=== PATIENT | female | born 1960 | race Caucasian/White ===

== ENCOUNTER 2020-09-26 07:04 | Emergency (ER) | payer MEDICARE, MEDICAID ==
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
[2020-09-26 08:04] LABS: CHLORIDE,CL 105 mmol/L (98-107); SODIUM,NA 142 mmol/L (136-145)
[2020-09-26 08:07] LABS: ANION GAP 15.2 mmol/L (5-15)
[2020-09-26] MEDS ORDERED: methylPREDNISolone Sodium Succinate 125 MG/2 ML SDV IVPUSH ONE (08:21)
[2020-09-26] MEDS ORDERED: Furosemide 40 MG/4 ML VIAL IV ONE (08:21)
[2020-09-26] MEDS ORDERED: Azithromycin 250 MG Tab PO ONE (08:22)
[2020-09-26] MEDS ORDERED: Levofloxacin 500 MG Tab PO ONE (08:28)
--- NOTE | 2020-09-27 14:24 | CR ---
[id number] RAD/RAD Chest PA or AP 1V EXAM: FRONTAL CHEST INDICATION: CHEST PAIN COMPARISON: None. DISCUSSION: Partially imaged right shoulder arthroplasty. The lung volumes. No acute infiltrates. Normal heart size. No effusions. IMPRESSION: 1. Low lung volumes. Luis Mae MD 09/27/20 1105 Thank you for allowing us to participate in the care of your patient.
== END 2020-09-26 10:00 | disposition home or self-care (01) ==
LOC: VM.ED 07:04
DX: J45.901 Unspecified asthma with (acute) exacerbation (principal); I11.0 Hypertensive heart disease with heart failure; I50.9 Heart failure, unspecified; I48.91 Unspecified atrial fibrillation; E78.00 Pure hypercholesterolemia, unspecified; J44.9 Chronic obstructive pulmonary disease, unspecified; Z20.822 Contact with and (suspected) exposure to COVID-19
CPT/HCPCS: 36415; 71045; 80053; 83880; 84484; 85025; 85610; 93005; 93010; 96374; 96375; 99284; 99285-25; A9270-GY; J1940; J2930; U0002

== ENCOUNTER 2020-10-31 12:53 | Emergency (ER) | payer MEDICARE, MEDICAID ==
[2020-10-31] MEDS ORDERED: Sodium Chloride 0.9% 10 ML Syringe FLUSH PRN (13:14)
--- NOTE | 2020-10-31 13:19 | EDM.PDOC ---
ED HPI GENERAL MEDICAL PROBLEM - General Chief Complaint: Chest Pain Stated Complaint: CHEST PAIN Time Seen by Provider: 10/31/20 13:00 Source of Information: Reports: Patient History Limitations: Reports: No Limitations - History of Present Illness INITIAL COMMENTS - FREE TEXT/NARRATIVE: Patient comes into the emergency department complaints of chest pain. Patient has a longstanding history of chest pain and she was recently hospitalized for a similar incident. She states the sudden onset of chest discomfort on the left side hurts more when she takes a deep breath and when she palpates the area. She states it does not cause her dizziness, shortness of breath, lightheadedness, or decrease in responsiveness. She states it does radiate to the back area. She is able to reproduce the discomfort as stated above. Patient is currently on Eliquis for A. fib. She has had extensive cardiac work- up that has been cleared. Patient denies any other concerns or complaints. Onset: Sudden Quality: Reports: Other Severity: Moderate Improves with: Reports: None Worsens with: Reports: None Context: Reports: Other Associated Symptoms: Reports: Chest Pain - Related Data Allergies Allergy/AdvReac Type Severity Reaction Status Date / Time erythromycin base Allergy Severe Shortness Verified 09/26/20 19:21 of Breath KRISTEN Inhibitors Allergy Unknown Cannot Verified 09/26/20 19:21 Remember bee venom protein (honey bee) Allergy Anaphylactic Verified 09/26/20 19:21 Shock cefixime Allergy Cannot Verified 09/26/20 19:21 Remember Iodinated Contrast Media Allergy Anaphylactic Verified 09/26/20 19:21 Shock lidocaine Allergy Shortness Verified 09/26/20 19:21 of Breath nitrofurantoin Allergy Shortness Verified 09/26/20 19:21 of Breath Penicillins Allergy Shortness Verified 09/26/20 19:21 of Breath shellfish derived Allergy Anaphylactic Verified 09/26/20 19:21 Shock Tetracyclines Allergy Cannot Verified 09/26/20 19:21 Remember tramadol Allergy Cannot Verified 09/26/20 19:21 Remember Home Meds: Home Meds Acetaminophen [Tylenol Extra Strength] 1,000 mg PO Q6HR PRN 09/26/20 [History] Albuterol Sulfate [Albuterol Sulfate Hfa] 2 puff IH ASDIRECTED PRN 09/26/20 [History] Albuterol/Ipratropium [DuoNeb 3.0-0.5 MG/3 ML] 3 ml INH Q4HR PRN 09/26/20 [History] Apixaban [Eliquis] 5 mg PO DAILY 09/26/20 [History] Biotin 1,000 mcg PO DAILY 09/26/20 [History] Bumetanide [Bumex] 4 mg PO DAILY 09/26/20 [History] Docusate Sodium [Colace] 200 mg PO BEDTIME 09/26/20 [History] EPINEPHrine [Epinephrine] 0.3 mg IM ASDIRECTED PRN 09/26/20 [History] Fluticasone Propionate [Flonase] 2 sprays NASBOTH ASDIRECTED 09/26/20 [History] Fluticasone/Vilanterol [Breo Ellipta 200-25 MCG Inhalation Kit] 1 puff IH DAILY 09/26/20 [History] Glucagon [Gvoke Hypopen] 1 mg SQ ASDIRECTED PRN 09/26/20 [History] Ketoconazole [Ketoconazole 2%] 1 applic TOP BID PRN 09/26/20 [History] Lactobacillus Rhamnosus GG [Culturelle] 1 cap PO DAILY 09/26/20 [History] Lactulose [Generlac] 15 ml PO DAILY PRN 09/26/20 [History] Levofloxacin [Levaquin] 500 mg PO DAILY #4 tablet 09/26/20 [Rx] Magnesium Oxide 250 mg PO BEDTIME 09/26/20 [History] Melatonin 2 mg PO BEDTIME 09/26/20 [History] Montelukast [Singulair] 10 mg PO BEDTIME 09/26/20 [History] Nitroglycerin [Nitrostat] 0.4 mg SL ASDIRECTED PRN 09/26/20 [History] Omeprazole Magnesium [Prilosec Otc] 20 mg PO DAILY 09/26/20 [History] Potassium Chloride 20 meq PO BID 09/26/20 [History] Pregabalin 300 mg PO BID 09/26/20 [History] Propylene Glycol/PEG 400/Pf [Systane 0.3-0.4% Eye Drop] 1 drop EYERT Q4HR PRN 09/26/20 [History] Psyllium Husk [Psyllium Fiber] 4 - 5 cap PO DAILY 09/26/20 [History] Zinc 50 mg PO BEDTIME 09/26/20 [History] atorvaSTATin Calcium [Lipitor] 40 mg PO DAILY 09/26/20 [History] oxyCODONE HCl [Roxicodone] 5 mg PO BID PRN 09/26/20 [History] Past Medical History HEENT History: Reports: Other (See Below) (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) Cardiovascular History: Reports: Afib, High Cholesterol, Hypertension, Other (See Below) (chf, sleep apnea) Respiratory History: Reports: Asthma, COPD Musculoskeletal History: Reports: Back Pain, Chronic Neurological History: Reports: 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, EDAMS) Psychiatric History: Reports: ADHD, Bipolar, Depression, Other (See Below) (psyc hogenic seizure) Endocrine/Metabolic History: Reports: Other (See Below) (anemia) Hematologic History: Reports: Anemia, Iron Deficiency - Infectious Disease History Infectious Disease History: Reports: None - Past Surgical History GI Surgical History: Reports: Bariatric Procedure - History Comment History Comment: allergic to penicillins, azithromycin and erythromycin, on anticoagulation and pain contract ED ROS GENERAL - Review of Systems Review Of Systems: Comprehensive ROS is negative, except as noted in HPI. Constitutional: Reports: No Symptoms HEENT: Reports: No Symptoms Respiratory: Reports: No Symptoms Cardiovascular: Reports: Chest Pain Endocrine: Reports: No Symptoms GI/Abdominal: Reports: No Symptoms : Reports: No Symptoms Musculoskeletal: Reports: No Symptoms Skin: Reports: No Symptoms Neurological: Reports: No Symptoms Psychiatric: Reports: No Symptoms Hematologic/Lymphatic: Reports: No Symptoms Immunologic: Reports: No Symptoms ED EXAM, GENERAL - Physical Exam Exam: See Below Exam Limited By: No Limitations General Appearance: Alert, WD/WN, No Apparent Distress Ears: Normal External Exam, Normal Canal, Hearing Grossly Normal, Normal TMs Ear Exam: Bilateral Ear: Auricle Normal, Canal Normal, TM normal Nose: Normal Inspection, Normal Mucosa, No Blood Throat/Mouth: Normal Inspection, Normal Lips, Normal Teeth, Normal Gums, Normal Oropharynx, Normal Voice, No Airway Compromise Head: Atraumatic, Normocephalic Neck: Normal Inspection, Supple, Non-Tender, Full Range of Motion Respiratory/Chest: No Respiratory Distress, Lungs Clear, Normal Breath Sounds, No Accessory Muscle Use, Chest Non-Tender Cardiovascular: Normal Peripheral Pulses, Regular Rate, Rhythm, No Edema, No Gallop, No JVD, No Murmur, No Rub GI/Abdominal: Normal Bowel Sounds, Soft, Non-Tender, No Organomegaly, No Distention, No Abnormal Bruit, No Mass Back Exam: Normal Inspection, Full Range of Motion, NT Extremities: Normal Inspection, Normal Range of Motion, Non-Tender, Normal Capillary Refill, No Pedal Edema Neurological: Alert, Oriented, CN II-XII Intact, Normal Cognition, Normal Gait, Normal Reflexes, No Motor/Sensory Deficits Psychiatric: Normal Affect, Normal Mood Skin Exam: Warm, Dry, Intact, Normal Color, No Rash Lymphatic: No Adenopathy Course - Orders/Labs/Meds Orders: Active Orders 24 hr Category Date Time Status Chest 1V Frontal [CR] Stat Exams 10/31/20 13:14 Ordered Sodium Chloride 0.9% [Normal Saline] 1,000 ml Med 10/31/20 14:04 Ordered IV ONETIME Sodium Chloride 0.9% [Normal Saline] 1,000 ml Med 10/31/20 14:04 Ordered IV ONETIME Sodium Chloride 0.9% [Saline Flush] Med 10/31/20 13:14 Active 10 ml FLUSH ASDIRECTED PRN Peripheral IV Insertion Adult [OM.PC] Stat Oth 10/31/20 13:14 Ordered Medication Orders Sodium Chloride (Normal Saline) 1,000 mls @ 1,000 mls/hr IV ONETIME ONE Stop: 10/31/20 15:03 Sodium Chloride (Sodium Chloride 0.9% 10 Ml Syringe) 10 ml FLUSH ASDIRECTED PRN PRN Reason: Keep Vein Open Labs: Laboratory Tests 10/31/20 10/31/20 10/31/20 Range/Units 13:20 13:20 13:20 WBC 6.9 (4.0-10.0) x10^3/uL RBC 5.07 (4.00-5.50) x10^6/uL Hgb 15.3 D (12.0-16.0) g/dL Hct 44.9 (33.0-47.0) % MCV 88.6 (78.0-93.0) fL MCH 30.2 (26.0-32.0) pg MCHC 34.1 (32.0-36.0) g/dL RDW Coeff of Filomena 14.2 (10.0-15.0) % Plt Count 304 (130-400) x10^3/uL Neut % (Auto) 69.6 (50.0-80.0) % Lymph % (Auto) 20.7 L (25.0-50.0) % [place] % (Auto) 8.7 (2.0-11.0) % Eos % (Auto) 0.7 (0.0-4.0) % Baso % (Auto) 0.3 (0.2-1.2) % PT 12.0 (9.9-12.5) SEC INR 1.1 L (2.0-3.5) Sodium 138 (136-145) mmol/L Potassium 2.8 L* (3.5-5.1) mmol/L Chloride 99 (98-107) mmol/L Carbon Dioxide 29 (21-32) mmol/L Anion Gap 12.8 (5-15) mmol/L BUN 15 (7-18) mg/dL Creatinine 1.4 H (0.55-1.02) mg/dL Est Cr Clr Drug Dosing TNP Estimated GFR (MDRD) 39 Glucose 123 H (70-99) mg/dL Calcium 9.5 (8.5-10.1) mg/dL Corrected Calcium 9.5 (8.5-10.1) mg/dL Total Bilirubin 0.7 (0.2-1.0) mg/dL AST 34 (15-37) U/L ALT 32 (14-59) U/L Alkaline Phosphatase 217 H (46-116) U/L Troponin I High Sens 7 (<=51) ng/L Total Protein 8.4 H (6.4-8.2) g/dL Albumin 4.0 (3.4-5.0) g/dL Globulin 4.4 Albumin/Globulin Ratio 0.91 Meds: Medications Generic Name Dose Route Start Last Admin Trade Name Freq PRN Reason Stop Dose Admin Sodium Chloride 1,000 mls @ 1,000 mls/hr 10/31/20 14:04 Normal Saline IV 10/31/20 15:03 ONETIME ONE Sodium Chloride 10 ml 10/31/20 13:14 Sodium Chloride 0.9% 10 Ml Syringe FLUSH ASDIRECTED PRN Keep Vein Open Discontinued Medications Generic Name Dose Route Start Last Admin Trade Name Freq PRN Reason Stop Dose Admin Potassium Chloride 40 meq 10/31/20 14:00 Potassium Chloride 20 Meq Tab.Er PO 10/31/20 14:01 ONETIME ONE Departure - Departure Time of Disposition: 15:00 Disposition: Home, Self-Care 01 Condition: Good Clinical Impression: Hypokalemia, Nonspecific chest pain - Discharge Information *PRESCRIPTION DRUG MONITORING PROGRAM REVIEWED*: Not Applicable *COPY OF PRESCRIPTION DRUG MONITORING REPORT IN PATIENT HANNA: Not Applicable Instructions: Hypokalemia, Nonspecific Chest Pain, Adult Forms: ED Department Discharge Additional Instructions: 1. rest 2. increase your water intake 3. Continue all at home medications 4. Activity and diet as tolerated 5. Can take over the counter Tylenol for any pain or discomfort 6. Follow up with PCP if symptoms continue, return, or progress 7. Call with any questions or concerns 8. Increase your oral potassium for the next three days and follow up with PCP on Sunday for custodial regiment - My Orders Last 24 Hours: My Active Orders 10/31/20 13:14 Chest 1V Frontal [CR] Stat Sodium Chloride 0.9% [Saline Flush] 10 ml FLUSH ASDIRECTED PRN Peripheral IV Insertion Adult [OM.PC] Stat 10/31/20 14:04 Sodium Chloride 0.9% [Normal Saline] 1,000 ml IV ONETIME Sodium Chloride 0.9% [Normal Saline] 1,000 ml IV ONETIME - Assessment/Plan Last 24 Hours: My Active Orders 10/31/20 13:14 Chest 1V Frontal [CR] Stat Sodium Chloride 0.9% [Saline Flush] 10 ml FLUSH ASDIRECTED PRN Peripheral IV Insertion Adult [OM.PC] Stat 10/31/20 14:04 Sodium Chloride 0.9% [Normal Saline] 1,000 ml IV ONETIME Sodium Chloride 0.9% [Normal Saline] 1,000 ml IV ONETIME Assessment:: 1. chest pain 2. hypokalemia 3. Dehydration Plan: 1. Labs completed in the ER. Results reviewed with the patient 2. IV initiated in the emergency department 3. IV fluids provided 4. Chest xray completed in ER. Results reviewed with the patient 5. ASA 324mg chewable deferred pt is on Eliquis 6. EKG was completed in ER. Results reviewed with the patient 7. Oral potassium given and patient is instructed to increase oral potassium for the next 3 days and follow up in clinic 8. Patient and nursing staff was updated regarding the plan of care 9. Education provided the patient regarding activity, diet, rest, [id number] medication modalities, and follow-up care was provided 10. Patient and family are agreeable to the above plan of care 11. All questions and concerns were addressed with the patient and family prior to discharge
[2020-10-31 13:51] LABS: CHLORIDE,CL 99 mmol/L (98-107); SODIUM,NA 138 mmol/L (136-145)
[2020-10-31 13:55] LABS: ANION GAP 12.8 mmol/L (5-15)
[2020-10-31] MEDS ORDERED: Sodium Chloride 0.9% 1,000 ML IV ONE ×2 (14:04)
[2020-10-31] MEDS: Potassium Chloride 20 MEQ Tab.ER PO ONE ×2 (14:15→20:17)
[2020-10-31] MEDS ORDERED: Potassium Bicarbonate 25 MEQ Tab.EFF PO STA (14:27)
--- NOTE | 2020-10-31 14:50 | CR ---
[id number] RAD/RAD Chest PA or AP 1V EXAM: SINGLE VIEW CHEST. INDICATION: CHEST PAIN COMPARISON: CORRELATION IS MADE WITH SEPTEMBER 26, 2020 FINDINGS: The lungs are clear The cardiac silhouette is stable The right shoulder prosthesis is seen IMPRESSION: STABLE CHEST Bang Hollingsworth MD 10/31/20 [id number] Thank you for allowing us to participate in the care of your patient.
== END 2020-10-31 15:35 | disposition home or self-care (01) ==
LOC: VM.ED 12:53
DX: R07.9 Chest pain, unspecified (principal); E87.6 Hypokalemia; I48.91 Unspecified atrial fibrillation; E78.00 Pure hypercholesterolemia, unspecified; I10 Essential (primary) hypertension; J44.9 Chronic obstructive pulmonary disease, unspecified; D50.9 Iron deficiency anemia, unspecified; Z88.1 Allergy status to other antibiotic agents; Z88.8 Allergy status to other drugs, medicaments and biological substances; Z91.030 Bee allergy status; Z91.041 Radiographic dye allergy status; Z88.4 Allergy status to anesthetic agent; Z88.0 Allergy status to penicillin; Z91.013 Allergy to seafood; Z88.5 Allergy status to narcotic agent; Z79.01 Long term (current) use of anticoagulants; Z79.899 Other long term (current) drug therapy
CPT/HCPCS: 71045; 80053; 84484; 85025; 85610; 93005; 99284; 99285-25; A9270-GY; J7030

== ENCOUNTER 2020-11-14 09:45 | Emergency (ER) | payer MEDICARE, MEDICAID ==
[2020-11-14] MEDS ORDERED: Sodium Chloride 0.9% 1,000 ML IV ONE (10:03)
[2020-11-14] MEDS ORDERED: Ondansetron 4 MG/2 ML SDV IVPUSH ONE (10:03)
--- NOTE | 2020-11-14 10:08 | EDM.PDOC ---
ED HPI GENERAL MEDICAL PROBLEM - General Chief Complaint: Abdominal Pain Stated Complaint: abdominal pain Time Seen by Provider: 11/14/20 09:50 Source of Information: Reports: Patient History Limitations: Reports: No Limitations - History of Present Illness INITIAL COMMENTS - FREE TEXT/NARRATIVE: Patient comes into the emergency department complaints of abdominal pain. Patient states that the abdominal pain started approximately 24 hours prior to arrival to emergency department. Patient states it is increasing in intensity cramping sensation along the left upper quadrant across the entire abdomen. She also states that she is on blood thinners and does take them daily she has noticed an increased amount of bruising. She also noticed that she has had black tarry stools.The black tarry stools have increased in the last 24 hours. She also states that she has had diarrhea episodes approximately 7-8.Patient also endorses having some nausea with this. She denies any fever, chills, body aches, chest pain, shortness of breath, dizziness, lightheadedness, or genitourinary concerns. Location: Reports: Chest Quality: Reports: Other Severity: Mild Improves with: Reports: None Worsens with: Reports: None Associated Symptoms: Reports: No Other Symptoms - Related Data Allergies Allergy/AdvReac Type Severity Reaction Status Date / Time erythromycin base Allergy Severe Shortness Verified 10/31/20 20:02 of Breath KRISTEN Inhibitors Allergy Unknown Cannot Verified 10/31/20 20:02 Remember bee venom protein (honey bee) Allergy Anaphylactic Verified 10/31/20 20:02 Shock cefixime Allergy Cannot Verified 10/31/20 20:02 Remember Iodinated Contrast Media Allergy Anaphylactic Verified 10/31/20 20:02 Shock lidocaine Allergy Shortness Verified 10/31/20 20:02 of Breath nitrofurantoin Allergy Shortness Verified 10/31/20 20:02 of Breath Penicillins Allergy Shortness Verified 10/31/20 20:02 of Breath shellfish derived Allergy Anaphylactic Verified 10/31/20 20:02 Shock Tetracyclines Allergy Cannot Verified 10/31/20 20:02 Remember tramadol Allergy Cannot Verified 10/31/20 20:02 Remember Home Meds: Home Meds Acetaminophen [Tylenol Extra Strength] 1,000 mg PO Q6HR PRN 09/26/20 [History] Albuterol Sulfate [Albuterol Sulfate Hfa] 2 puff IH ASDIRECTED PRN 09/26/20 [History] Albuterol/Ipratropium [DuoNeb 3.0-0.5 MG/3 ML] 3 ml INH Q4HR PRN 09/26/20 [History] Apixaban [Eliquis] 5 mg PO DAILY 09/26/20 [History] Biotin 1,000 mcg PO DAILY 09/26/20 [History] Bumetanide [Bumex] 4 mg PO DAILY 09/26/20 [History] Docusate Sodium [Colace] 200 mg PO BEDTIME 09/26/20 [History] EPINEPHrine [Epinephrine] 0.3 mg IM ASDIRECTED PRN 09/26/20 [History] Fluticasone Propionate [Flonase] 2 sprays NASBOTH ASDIRECTED 09/26/20 [History] Fluticasone/Vilanterol [Breo Ellipta 200-25 MCG Inhalation Kit] 1 puff IH DAILY 09/26/20 [History] Glucagon [Gvoke Hypopen] 1 mg SQ ASDIRECTED PRN 09/26/20 [History] Ketoconazole [Ketoconazole 2%] 1 applic TOP BID PRN 09/26/20 [History] Lactobacillus Rhamnosus GG [Culturelle] 1 cap PO DAILY 09/26/20 [History] Lactulose [Generlac] 15 ml PO DAILY PRN 09/26/20 [History] Levofloxacin [Levaquin] 500 mg PO DAILY #4 tablet 09/26/20 [Rx] Magnesium Oxide 250 mg PO BEDTIME 09/26/20 [History] Melatonin 2 mg PO BEDTIME 09/26/20 [History] Montelukast [Singulair] 10 mg PO BEDTIME 09/26/20 [History] Nitroglycerin [Nitrostat] 0.4 mg SL ASDIRECTED PRN 09/26/20 [History] Omeprazole Magnesium [Prilosec Otc] 20 mg PO DAILY 09/26/20 [History] Potassium Chloride 20 meq PO BID 09/26/20 [History] Pregabalin 300 mg PO BID 09/26/20 [History] Propylene Glycol/PEG 400/Pf [Systane 0.3-0.4% Eye Drop] 1 drop EYERT Q4HR PRN 09/26/20 [History] Psyllium Husk [Psyllium Fiber] 4 - 5 cap PO DAILY 09/26/20 [History] Zinc 50 mg PO BEDTIME 09/26/20 [History] atorvaSTATin Calcium [Lipitor] 40 mg PO DAILY 09/26/20 [History] oxyCODONE HCl [Roxicodone] 5 mg PO BID PRN 09/26/20 [History] Past Medical History HEENT History: Reports: Other (See Below) (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) Cardiovascular History: Reports: Afib, CAD, Heart Failure, High Cholesterol, Hypertension, Other (See Below) Respiratory History: Reports: Asthma, COPD Musculoskeletal History: Reports: Back Pain, Chronic Neurological History: Reports: CVA Psychiatric History: Reports: ADHD, Bipolar, Depression Endocrine/Metabolic History: Reports: Other (See Below) Hematologic History: Reports: Anemia, Iron Deficiency - Infectious Disease History Infectious Disease History: Reports: None - Past Surgical History GI Surgical History: Reports: Bariatric Procedure - History Comment History Comment: allergic to penicillins, azithromycin and erythromycin, on anticoagulation and pain contract ED ROS GENERAL - Review of Systems Review Of Systems: Comprehensive ROS is negative, except as noted in HPI. Constitutional: Reports: No Symptoms HEENT: Reports: No Symptoms Respiratory: Reports: No Symptoms Cardiovascular: Reports: No Symptoms Endocrine: Reports: No Symptoms GI/Abdominal: Reports: No Symptoms : Reports: No Symptoms Musculoskeletal: Reports: No Symptoms Skin: Reports: No Symptoms Neurological: Reports: No Symptoms Psychiatric: Reports: No Symptoms Hematologic/Lymphatic: Reports: No Symptoms Immunologic: Reports: No Symptoms ED EXAM, GENERAL - Physical Exam Exam: See Below Exam Limited By: No Limitations General Appearance: Alert, WD/WN, No Apparent Distress Head: Atraumatic, Normocephalic Neck: Normal Inspection, Supple, Non-Tender, Full Range of Motion Respiratory/Chest: No Respiratory Distress, Lungs Clear, Normal Breath Sounds, No Accessory Muscle Use, Chest Non-Tender Cardiovascular: Normal Peripheral Pulses, Regular Rate, Rhythm, No Edema Back Exam: Normal Inspection, Full Range of Motion Extremities: Normal Inspection, Normal Range of Motion, Non-Tender, Normal Capillary Refill Neurological: Alert, Oriented, CN II-XII Intact, Normal Gait Psychiatric: Normal Affect, Normal Mood Skin Exam: Warm, Dry, Intact, No Rash Course - Orders/Labs/Meds Orders: Active Orders 24 hr Category Date Time Status EKG Documentation Completion [RC] STAT Care 11/14/20 09:59 Active Labs: Laboratory Tests 11/14/20 11/14/20 11/14/20 Range/Units 10:11 10:11 10:11 WBC 7.0 (4.0-10.0) x10^3/uL RBC 5.09 (4.00-5.50) x10^6/uL Hgb 15.1 (12.0-16.0) g/dL Hct 45.5 (33.0-47.0) % MCV 89.4 (78.0-93.0) fL MCH 29.7 (26.0-32.0) pg MCHC 33.2 (32.0-36.0) g/dL RDW Coeff of Filomena 14.4 (10.0-15.0) % Plt Count 295 (130-400) x10^3/uL Neut % (Auto) 68.3 (50.0-80.0) % Lymph % (Auto) 23.9 L (25.0-50.0) % [place] % (Auto) 7.1 (2.0-11.0) % Eos % (Auto) 0.6 (0.0-4.0) % Baso % (Auto) 0.1 L (0.2-1.2) % PT 11.6 (9.9-12.5) SEC INR 1.0 L (2.0-3.5) Sodium 136 (136-145) mmol/L Potassium 4.0 (3.5-5.1) mmol/L Chloride 101 (98-107) mmol/L Carbon Dioxide 24 (21-32) mmol/L Anion Gap 15.0 (5-15) mmol/L BUN 16 (7-18) mg/dL Creatinine 1.4 H (0.55-1.02) mg/dL Est Cr Clr Drug Dosing TNP Estimated GFR (MDRD) 39 Glucose 118 H (70-99) mg/dL Calcium 9.5 (8.5-10.1) mg/dL Corrected Calcium 9.6 (8.5-10.1) mg/dL Total Bilirubin 0.8 (0.2-1.0) mg/dL AST 31 (15-37) U/L ALT 31 (14-59) U/L Alkaline Phosphatase 178 H (46-116) U/L Troponin I High Sens 4 (<=51) ng/L Total Protein 8.3 H (6.4-8.2) g/dL Albumin 3.9 (3.4-5.0) g/dL Globulin 4.4 Albumin/Globulin Ratio 0.89 Meds: Medications Discontinued Medications Generic Name Dose Route Start Last Admin Trade Name Valentinq PRN Reason Stop Dose Admin Sodium Chloride 1,000 mls @ 1,000 mls/hr 11/14/20 10:03 11/14/20 10:20 Normal Saline IV 11/14/20 11:02 1,000 mls/hr ONETIME ONE Administration Ondansetron HCl 4 mg 11/14/20 10:03 11/14/20 10:30 Ondansetron 4 Mg/2 Ml Sdv IVPUSH 11/14/20 10:04 4 mg ONETIME ONE Administration Departure - Departure Time of Disposition: 11:25 Disposition: Home, Self-Care 01 Condition: Good Clinical Impression: Gastroenteritis - Discharge Information *PRESCRIPTION DRUG MONITORING PROGRAM REVIEWED*: Not Applicable *COPY OF PRESCRIPTION DRUG MONITORING REPORT IN PATIENT HANNA: Not Applicable Instructions: Viral Gastroenteritis, Adult, [id number] Forms: ED Department Discharge Additional Instructions: 1. rest 2. increase your water intake 3. Continue all at home medications 4. Activity and diet as tolerated 5. Can take over the counter Tylenol for any pain or discomfort 6. Follow up with PCP if symptoms continue, return, or progress 7. Call with any questions or concerns - My Orders Last 24 Hours: My Active Orders 11/14/20 09:59 EKG Documentation Completion [RC] STAT - Assessment/Plan Last 24 Hours: My Active Orders 11/14/20 09:59 EKG Documentation Completion [RC] STAT Assessment:: 1. Black tarry stool 2. abdominal pain Plan: 1. Labs completed in the ER. Results reviewed with the patient 2. CT scan completed in the ER. Results reviewed with the patient 3. IV initiated in the emergency department 4. IV fluids provided 5. Pain medication given for severe pain and discomfort- 6. Zofran given in the ER to help with nausea 7. Chest Xray completed in the ER results reviewed with the patient 8. EKG completed in ER. 9. Patient and nursing staff was updated regarding the plan of care 10. No bleeding noted in the rectum patient is encouraged to follow up with her PCP Sunday or Sunday Diarrhea returns or more blood is noted 11. Patient and family are agreeable to the above plan of care 12. All questions and concerns were addressed with the patient and family prior to discharge
[2020-11-14 10:40] LABS: CHLORIDE,CL 101 mmol/L (98-107); SODIUM,NA 136 mmol/L (136-145)
--- NOTE | 2020-11-14 11:13 | CR ---
[id number] RAD/RAD Chest PA or AP 1V EXAM: SINGLE VIEW CHEST. INDICATION: LEFT LOWER RIB PAIN COMPARISON: CORRELATION IS MADE WITH OCTOBER 31, 2020 FINDINGS: The lungs are clear There is no pneumothorax The cardiac silhouette is stable There is no obvious rib fracture Surgical changes of the right shoulder are seen IMPRESSION: NO ACUTE PROCESS EVIDENT Bang Hollingsworth MD 11/14/20 [id number] Thank you for allowing us to participate in the care of your patient.
--- NOTE | 2020-11-14 11:15 | CT ---
[id number] CT/CT Abdomen Pelvis WO IV Exam: CT Abdomen Pelvis WO IV Clinical Data: ABDOMINAL PAIN BLEEDING COMPARISON: NO PREVIOUS SIMILAR EXAM IS AVAILABLE FINDINGS: There is minimal scarring at the left lung base. Gastric surgical changes are seen. IV contrast was not used. The liver and spleen, kidneys, adrenals, pancreas, and aorta show no acute abnormalities of the gallbladder has been removed. The bowel shows no obstruction. The uterus and ovaries are not seen The pelvis shows no mass or adenopathy There is no free air or free fluid. There is no evidence of appendicitis Surgical changes of the lumbar spine are seen IMPRESSION: NO ACUTE ABNORMALITY Bang Hollingsworth MD 11/14/20 2211 Thank you for allowing us to participate in the care of your patient.
== END 2020-11-14 11:45 | disposition home or self-care (01) ==
LOC: VM.ED 09:45
DX: K52.9 Noninfective gastroenteritis and colitis, unspecified (principal); I48.91 Unspecified atrial fibrillation; I25.10 Atherosclerotic heart disease of native coronary artery without angina pectoris; I11.0 Hypertensive heart disease with heart failure; I50.9 Heart failure, unspecified; J44.9 Chronic obstructive pulmonary disease, unspecified; Z88.0 Allergy status to penicillin; Z88.1 Allergy status to other antibiotic agents; Z91.041 Radiographic dye allergy status; Z88.4 Allergy status to anesthetic agent; Z91.030 Bee allergy status; Z88.5 Allergy status to narcotic agent; Z88.8 Allergy status to other drugs, medicaments and biological substances; Z79.01 Long term (current) use of anticoagulants; Z79.899 Other long term (current) drug therapy
CPT/HCPCS: 71045; 74176; 80053; 84484; 85025; 85610; 96374; 99283; 99284-25; J2405; J7030

== ENCOUNTER 2021-06-27 17:11 | Emergency (ER) | payer MEDICARE, MEDICAID ==
[2021-06-27] MEDS ORDERED: Morphine 4 MG/ML Syringe IVPUSH ONE (17:25)
[2021-06-27] MEDS ORDERED: Acetaminophen/HYDROcodone 325-5 MG Tab PO ONE (17:54)
[2021-06-27 18:04] LABS: PTT,PARTIAL THROMBOPLSTIN TIME 24.6 SEC (20.5-30.9)
[2021-06-27 18:18] LABS: CHLORIDE,CL 102 mmol/L (98-107); SODIUM,NA 139 mmol/L (136-145)
[2021-06-27 18:24] LABS: ANION GAP 11.5 mmol/L (5-15)
== END 2021-06-27 18:49 | disposition home or self-care (01) ==
LOC: VM.ED 17:11
DX: S46.911A Strain of unspecified muscle, fascia and tendon at shoulder and upper arm level, right arm, initial encounter (principal); S20.211A Contusion of right front wall of thorax, initial encounter; S09.90XA Unspecified injury of head, initial encounter; I48.91 Unspecified atrial fibrillation; I25.10 Atherosclerotic heart disease of native coronary artery without angina pectoris; I11.0 Hypertensive heart disease with heart failure; I50.9 Heart failure, unspecified; J44.9 Chronic obstructive pulmonary disease, unspecified; Z86.73 Personal history of transient ischemic attack (TIA), and cerebral infarction without residual deficits; E78.00 Pure hypercholesterolemia, unspecified; Z88.1 Allergy status to other antibiotic agents; Z88.8 Allergy status to other drugs, medicaments and biological substances; Z88.0 Allergy status to penicillin; Z88.5 Allergy status to narcotic agent; Z88.4 Allergy status to anesthetic agent; Z91.041 Radiographic dye allergy status; Z91.030 Bee allergy status; Z79.01 Long term (current) use of anticoagulants; Z79.899 Other long term (current) drug therapy; W18.09XA Striking against other object with subsequent fall, initial encounter
CPT/HCPCS: 36415; 70450; 71045; 72125; 73060-RT; 80053; 83735; 83880; 84100; 84443; 84484; 85025; 85610; 85730; 86140; 99284-25; 99285; A9270-GY

== ENCOUNTER 2021-07-11 08:55 | Emergency (ER) | payer MEDICARE, MEDICAID ==
[2021-07-11 09:45] LABS: CHLORIDE,CL 103 mmol/L (98-107); SODIUM,NA 139 mmol/L (136-145)
[2021-07-11 09:46] LABS: ANION GAP 13.8 mmol/L (5-15)
== END 2021-07-11 12:00 | disposition short-term general hospital (02) ==
LOC: VM.ED 08:55
DX: R53.1 Weakness (principal); I11.0 Hypertensive heart disease with heart failure; I50.9 Heart failure, unspecified; I48.91 Unspecified atrial fibrillation; J44.9 Chronic obstructive pulmonary disease, unspecified; F32.A Depression, unspecified; F90.9 Attention-deficit hyperactivity disorder, unspecified type; Z86.73 Personal history of transient ischemic attack (TIA), and cerebral infarction without residual deficits; Z79.899 Other long term (current) drug therapy; Z88.1 Allergy status to other antibiotic agents; Z91.030 Bee allergy status; Z88.5 Allergy status to narcotic agent; Z88.8 Allergy status to other drugs, medicaments and biological substances; Z91.048 Other nonmedicinal substance allergy status
CPT/HCPCS: 36415; 70450; 71045; 80048; 85025; 85610; 93005; 93010; 99284; 99285-25